=== PATIENT | female | born 1975 | race American Indian/Alaskan Native ===

== ENCOUNTER 2018-06-07 09:21 | Outpatient (CLI) | payer MEDICAID ==
--- NOTE | 2018-06-07 10:31 | XRay Report ---
ROUTINE CHEST, TWO VIEWS: HISTORY: vns implant, check wire placement. The trachea, heart, mediastinal contour, lung goetz and bony thorax are unremarkable. An electrical device overlies the left chest with leads terminating near the left C7 level. IMPRESSION: Unremarkable chest x-ray.
== END 2018-06-07 09:22 | disposition home or self-care (01) ==
LOC: XRAY 09:21
PROVIDERS: ATTEND Specialist
DX: C40.21 Malignant neoplasm of long bones of right lower limb (principal)
CPT/HCPCS: 71046